=== PATIENT | female | born 1995 ===

== ENCOUNTER → 2018-11-15 | Outpatient (REF) | payer OTHER ==
[2018-11-15 12:22] LABS: PLATELET COUNT, AUTOMATED 214 K/uL (150-450)
== END ==
PROVIDERS: ATTEND Nurse Practitioner Family
DX: R05 Cough (principal); Z77.120 Contact with and (suspected) exposure to mold (toxic)
CPT/HCPCS: 82310; 82374; 82435; 82565; 82947; 84132; 84295; 84520; 85025; 86638